=== PATIENT | male | born 1975 | race Hispanic/Latino ===

== ENCOUNTER 2016-11-01 21:49 | Emergency (ER) | payer OTHER ==
[~2016-11-01] VITALS: Ht 180.3 cm; Wt 99.8 kg
[~2016-11-01 21:49] MED LIST: CYCLOBENZAPRINE10 M1 PO; MOTRIN 600 MG600 MG PO; NAPROXEN500 MG PO; TERBINAFINE HY250 MG PO; TORADOL10 MG PO; ULTRAM(MONOGRAP50 MG PO; VICODIN 5-3001 EACH PO
[2016-11-01 22:17] VITALS: BP 121/74
--- NOTE | 2016-11-01 22:35 | ED EYE COMPLAINT ---
History of Present Illness General Chief Complaint: Eye Problems Stated Complaint: BILATERAL PINK EYE Source: patient, old records Exam Limitations: no limitations Vital Signs & Intake/Output Vital Signs & Intake/Output Vital Signs Date Time Temp Pulse Resp B/P Pulse O2 O2 Flow FiO2 Ox Delivery Rate 11/01 2217 97.8 86 18 121/74 96 Room Air Allergies Coded Allergies: NO KNOWN ALLERGIES (08/18/15) Reconcile Medications Polytrim (Polytrim Eye Drops) 10,000 UNIT-1 MG/ML DROPS 2 GTT OPH Q6HR conjunctivitis Triage Note: RECEIVED 40 YO MALE C/O SCLERA RED BILATERALLY, STARTED TODAY Triage Nurses Notes Reviewed? yes Onset: Abrupt Duration: day(s): (1), constant Timing: single episode today Injury Environment: home Severity: mild Severity Numbers: 3 No Modifying Factors: none Left Eye Associated Symptoms: itching Right Eye Associated Symptoms: itching HPI: 40-year-old male presents complaining of bilateral eye redness and discharge since this morning. No sick contacts with similar symptoms. He denies any recent trauma or injury. He denies foreign body sensation to the eye does not wear glasses or contacts no fever no chills no cough no congestion or sore throat. 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 see below for history Neurological: NONE EENT: NONE Cardiovascular: NONE Respiratory: NONE Gastrointestinal: NONE Hepatic: NONE Renal: NONE Musculoskeletal: BACK SURGERY FOR PINCHED NERVES Psychiatric: NONE Blood Disorders: NONE Cancer(s): NONE Surgical History Surgical History: back surgery Psychosocial History What is your primary language Macedonian Tobacco Use: Never used Family History Family History, If Any: FATHER FH ischemic heart disease MOTHER FH: diabetes mellitus Hx Contributory? No (DINA GAYTAN) Review of Systems Review of Systems Constitutional: Reports: see HPI. All Other Systems: Reviewed and Negative Comments Review of systems: See HPI, All other systems negative. Constitutional, no chills no fever, no malaise HEENT: No visual changes no sore throat no congestion Cardiovascular: No chest pain , no palpitation Skin, n no rashes, no change in skin Respiratory: No dyspnea no cough no sputum GI: No nausea no vomiting, no diarrhea, n : No dysuria N Muscle skeletal: No joint pain, no back pain, no neck pain, Neurologic: No numbness no headache Psych: No stress Heme/endocrine: No bruising no bleeding Immunology: No lymphadenopathy (DINA GAYTAN) Physical Exam General Appearance: well developed/nourished, no apparent distress General Inspection: normal inspection Eyelid: normal inspection Conjunctiva/Sclera: injected Cornea: normal inspection EOM: intact Pupil: normal accommodation, normal pupil, PERRL General Inspection: normal inspection Eyelid: normal inspection Conjunctiva/Sclera: injected Cornea: normal inspection EOM: intact Pupil: normal accommodation, normal pupil, PERRL Physical Exam Comments: Well-developed well-nourished patient in no apparent distress. Head/Face: Atraumatic, no maxillary/frontal sinus tenderness, no facial swelling Eyes: PERRL, EOMI, no conjunctival injection. No nystagmus Ear:External auditory canal and Tympanic membranes clear, no erythema, no FB. Nose: atraumatic.Normal inspection Throat: Moist mucous membranes.Pharynx normal. No stridor/drooling or assymetry. No swelling or edema. Neck: Supple, no lymphadenopathy, FROM Back: FROM, Nontender Cardiovascular: Regular rate and rhythms no murmurs Respiratory: No respiratory distress. Patient speaking in full complete sentences. Breath sounds clear to auscultation bilaterally: NO W/R/R Extremities: full range of motion Neuro: Alert and oriented x3 Skin: Warm & dry;No appreciable rash on exposed skin Psych: Mood affect normal, normal memory normal judgment. (DINA GAYTAN) Progress Differential Diagnosis: corneal abrasion, corneal foreign body, conjunctivitis, glaucoma, iritis Plan of Care: Prescription for Polytrim eyedrops provided he feels couple plan answered all his questions you follow up with primary care this week cleared for discharge (DINA GAYTAN) Departure Departure Time of Disposition: 2237 Disposition: HOME OR SELF CARE Condition: Stable Clinical Impression Primary Impression: Conjunctivitis Referrals: PATIENT HAS NO PRIMARY CARE DR (PCP/Family) Additional Instructions: polytrim eye drops as discussed. cool compresses as needed. follow up with your pmd this week, return with any concerns. Departure Forms: Customer Survey General Discharge Information Prescriptions: Current Visit Scripts Polytrim (Polytrim Eye Drops) 2 GTT OPH Q6HR #10 ML (DINA GAYTAN) PA/CHAIR CAR ATTENDANT Co-Sign Statement Statement: ED Attending supervision documentation- [] I saw and evaluated the patient. I have also reviewed all the pertinent lab results and diagnostic results. I agree with the findings and the plan of care as documented in the PA's/CHAIR CAR ATTENDANT's documentation. [X] I have reviewed the ED Record and agree with the PA's/CHAIR CAR ATTENDANT's documentation. [] Additions or exceptions (if any) to the PAs/CHAIR CAR ATTENDANT's note and plan are summarized below: [] (JERAMIE KELLY,PATEL Poole)
[2016-11-01] MEDS ORDERED: POLYTRIM EYE DR10 ML OPH (22:40)
== END 2016-11-01 22:46 ==
LOC: ERH 21:49
DX: H10.9 Unspecified conjunctivitis (principal)